=== PATIENT | male | born 1995 | race Caucasian/White ===

== ENCOUNTER 2019-04-30 13:51 | Emergency (ER) | payer MEDICAID ==
[~2019-04-30] VITALS: Ht 167.6 cm; Wt 53.5 kg
[2019-04-30 17:59] VITALS: BP 99/69
== END 2019-04-30 17:59 | disposition home or self-care (01) ==
LOC: ED 13:51
DX: B34.9 Viral infection, unspecified (principal)
CPT/HCPCS: J1885